=== PATIENT | female | born 1995 | race African-American/Black ===

== ENCOUNTER 2017-05-05 19:54 | Emergency (ER) | payer MEDICAID, OTHER ==
[~2017-05-05] VITALS: Ht 177.8 cm; Wt 146.0 kg
[2017-05-05 23:45] VITALS: BP 140/71
== END 2017-05-06 00:13 | disposition home or self-care (01) ==
LOC: ER 19:54
DX: T18.198A Other foreign object in esophagus causing other injury, initial encounter (principal); J45.909 Unspecified asthma, uncomplicated; F84.0 Autistic disorder; E11.9 Type 2 diabetes mellitus without complications; D64.9 Anemia, unspecified; Y92.89 Other specified places as the place of occurrence of the external cause
CPT/HCPCS: 99283; Z7610

== ENCOUNTER 2018-11-24 08:37 | Emergency (ER) | payer OTHER ==
[~2018-11-24] VITALS: Ht 167.6 cm; Wt 100.0 kg
[2018-11-24 10:05] LABS: BASOPHILS % 0.2 % (0.0-2.0); EOSINOPHILS % 1.1 % (0.0-5.0); HEMATOCRIT. 34.8 % (36.0-48.0); HEMOGLOBIN. 11.5 g/dL (12.0-16.0); LYMPHOCYTES % 33.4 % (20.0-50.0); MEAN CORPUSCULAR HEMOGLOBIN 31.2 pg (28.0-32.0); MEAN PLATELET VOLUME 9.6 fl (7.4-10.4); MONOCYTES % 11.3 % (2.0-8.0); PLATELET 184 x1000/uL (130-400); RED CELL DISTRIBUTION WIDTH 14.2 % (11.6-14.6)
[2018-11-24 10:12] LABS: CHLORIDE 108 mEq/L (98-107)
[2018-11-24 10:16] LABS: ETHANOL BLOOD < 10 mg/dL
[2018-11-24 10:23] LABS: HCG SCREEN NEGATIVE
[2018-11-24 14:01] LABS: CLARITY URINE CLOUDY (CLEAR); COLOR URINE YELLOW (YELLOW); KETONES URINE TRACE (NEGATIVE); LEUKOCYTE ESTERASE URINE NEGATIVE (NEGATIVE); NITRITE URINE NEGATIVE (NEGATIVE); OCCULT BLOOD URINE NEGATIVE (NEGATIVE); PROTEIN URINE NEGATIVE (NEGATIVE); SPECIFIC GRAVITY URINE 1.021 (1.005-1.030); UROBILINOGEN URINE 0.2 E.U./dL (0.2-1.0)
[2018-11-24 14:16] LABS: *AMPHETAMINES SCREEN URINE NEGATIVE (NEGATIVE); *BARBITURATES SCREEN URINE NEGATIVE (NEGATIVE); *BENZODIAZEPINES SCREEN URINE NEGATIVE (NEGATIVE)
[2018-11-24 14:18] LABS: *COCAINE SCREEN URINE NEGATIVE (NEGATIVE); CANNABINOID URINE SCREEN NEGATIVE (NEGATIVE); METHADONE URINE SCREEN NEGATIVE (NEGATIVE); OPIATES URINE SCREEN NEGATIVE (NEGATIVE); PHENCYCLIDINE URINE SCREEN NEGATIVE (NEGATIVE)
[2018-11-24 14:21] VITALS: BP 150/75
== END 2018-11-24 14:44 | disposition home or self-care (01) ==
LOC: ER 08:37
DX: F23 Brief psychotic disorder (principal); J45.909 Unspecified asthma, uncomplicated; E11.9 Type 2 diabetes mellitus without complications; D64.9 Anemia, unspecified
CPT/HCPCS: 36415; 80305; 80307; 80320; 80329; 81003; 81025; 82962; 84703; 99283; G0480

== ENCOUNTER 2019-02-25 17:39 | Emergency (ER) | payer OTHER ==
[~2019-02-25] VITALS: Ht 170.2 cm; Wt 114.0 kg
[2019-02-25] MEDS ORDERED: CHLO200T9 PO (17:52)
[2019-02-25] MEDS ORDERED: DOCU250C69 PO (17:52)
[2019-02-25] MEDS ORDERED: BISA-81 PO (17:52)
[2019-02-25] MEDS ORDERED: DORZ10DR9 OP (17:52)
[2019-02-25] MEDS ORDERED: DIVA-75 PO (17:52)
[2019-02-25] MEDS ORDERED: ALBU18HF2 IH (17:52)
[2019-02-25] MEDS ORDERED: FLUO20CA33 PO (17:52)
[2019-02-25] MEDS ORDERED: HALO100A IM (17:55)
[2019-02-25] MEDS ORDERED: FLUT15.844 NS (17:55)
[2019-02-25] MEDS ORDERED: HYDR-4001 PO (17:55)
[2019-02-25] MEDS ORDERED: LURA80TA PO (17:55)
[2019-02-25] MEDS ORDERED: METF-815 PO (17:55)
[2019-02-25] MEDS ORDERED: OLAN15TA17 PO (17:55)
[2019-02-25] MEDS ORDERED: SENN-170 PO (17:56)
[2019-02-25] MEDS ORDERED: SODIUM CHLORIDE 0.9% 1,000 ML IV ONE (18:39)
[2019-02-25] MEDS ORDERED: ONDANSETRON HCL 4MG/2ML INJ IV STA (18:39)
[2019-02-25 19:12] LABS: CHLORIDE 107 mEq/L (98-107)
[2019-02-25 19:16] LABS: ETHANOL BLOOD < 10 mg/dL
[2019-02-25 19:20] LABS: BASOPHILS % 0.4 % (0.0-2.0); EOSINOPHILS % 1.6 % (0.0-5.0); HEMATOCRIT. 39.2 % (36.0-48.0); HEMOGLOBIN. 12.8 g/dL (12.0-16.0); LYMPHOCYTES % 30.3 % (20.0-50.0); MEAN CORPUSCULAR HEMOGLOBIN 30.3 pg (28.0-32.0); MEAN CORPUSCULAR VOLUME 92.7 fL (81.0-99.0); MEAN PLATELET VOLUME 9.8 fl (7.4-10.4); MONOCYTES % 9.7 % (2.0-8.0); PLATELET 194 x1000/uL (130-400); RED BLOOD CELL COUNT 4.23 mill/uL (4.2-5.4); RED CELL DISTRIBUTION WIDTH 14.2 % (11.6-14.6)
[2019-02-26 11:20] LABS: *AMPHETAMINES SCREEN URINE NEGATIVE (NEGATIVE); *BARBITURATES SCREEN URINE NEGATIVE (NEGATIVE); *BENZODIAZEPINES SCREEN URINE NEGATIVE (NEGATIVE); *COCAINE SCREEN URINE NEGATIVE (NEGATIVE); METHADONE URINE SCREEN NEGATIVE (NEGATIVE); OPIATES URINE SCREEN NEGATIVE (NEGATIVE)
[2019-02-26 11:21] LABS: CANNABINOID URINE SCREEN NEGATIVE (NEGATIVE); PHENCYCLIDINE URINE SCREEN NEGATIVE (NEGATIVE)
[2019-02-26 15:48] LABS: CLARITY URINE CLEAR (CLEAR); COLOR URINE YELLOW (YELLOW); KETONES URINE TRACE (NEGATIVE); LEUKOCYTE ESTERASE URINE NEGATIVE (NEGATIVE); NITRITE URINE NEGATIVE (NEGATIVE); OCCULT BLOOD URINE NEGATIVE (NEGATIVE); PH URINE 6.5 (4.5-8.0); PROTEIN URINE NEGATIVE (NEGATIVE); SPECIFIC GRAVITY URINE 1.023 (1.005-1.030); UROBILINOGEN URINE 0.2 E.U./dL (0.2-1.0)
[2019-02-26] MEDS ORDERED: LORAZEPAM 2MG/ML CPJ IM ONE (16:45)
[2019-02-26] MEDS ORDERED: HALOPERIDOL LACTATE 5MG/ML VIAL IM ONE (16:45)
[2019-02-26] MEDS ORDERED: DIPHENHYDRAMINE 50MG/ML VIAL IM ONE (16:45)
[2019-02-26] MEDS ORDERED: DIVALPROEX SODIUM 250MG ER TABLET PO SCH (17:00)
[2019-02-26] MEDS ORDERED: DIVALPROEX SODIUM 500MG DR TABLET PO SCH (17:00)
[2019-02-26] MEDS: FLUOXETINE HCL 20MG CAPSULE PO SCH (17:11)
[2019-02-26] MEDS: DIVALPROEX SODIUM 250MG DR TABLET PO SCH (17:45)
[2019-02-26 21:46] LABS: HCG SCREEN NEGATIVE
[2019-02-26] MEDS: CHLORPROMAZINE HCL 25 MG TABLET PO SCH (22:38)
[2019-02-27] MEDS: CHLORPROMAZINE HCL 25 MG TABLET PO SCH ×2 (10:47→14:00)
[2019-02-27] MEDS: DIVALPROEX SODIUM 250MG DR TABLET PO SCH ×2 (10:47→17:00)
[2019-02-27] MEDS: FLUOXETINE HCL 20MG CAPSULE PO SCH (10:47)
[2019-02-28] MEDS: FLUOXETINE HCL 20MG CAPSULE PO SCH (09:00)
[2019-02-28] MEDS: DIVALPROEX SODIUM 250MG DR TABLET PO SCH (09:00)
[2019-02-28 16:51] VITALS: BP 106/65
== END 2019-02-28 17:20 | disposition home or self-care (01) ==
LOC: ER 17:39
DX: R53.1 Weakness (principal); E86.0 Dehydration; G93.49 Other encephalopathy; E11.9 Type 2 diabetes mellitus without complications; J45.909 Unspecified asthma, uncomplicated; Z75.1 Person awaiting admission to adequate facility elsewhere; F41.9 Anxiety disorder, unspecified; F20.9 Schizophrenia, unspecified; Z79.84 Long term (current) use of oral hypoglycemic drugs; Z79.899 Other long term (current) drug therapy; Z91.14 Patient's other noncompliance with medication regimen
CPT/HCPCS: 36415; 80053; 80320; 81025; 82962; 85025; 93005; 96361; 96372; 96374; 99284; J1200; J1630; J2060; J2405; J7030; Q0161; G0480

== ENCOUNTER 2019-11-23 22:18 | Emergency (ER) | payer OTHER ==
[~2019-11-23] VITALS: Ht 177.8 cm; Wt 146.0 kg
[~2019-11-23 22:18] MED LIST: ALBU18HF2 IH; BISA-81 PO; CHLO200T9 PO; DIVA-75 PO; DOCU250C69 PO; DORZ10DR9 OP; FLUO20CA33 PO; FLUT15.844 NS; HALO100A IM; HYDR-4001 PO; LURA80TA PO; METF-815 PO; OLAN15TA17 PO; SENN-170 PO
[2019-11-24 03:15] LABS: BASOPHILS % 0.4 % (0.0-2.0); EOSINOPHILS % 0.5 % (0.0-5.0); HEMATOCRIT. 34.7 % (36.0-48.0); HEMOGLOBIN. 11.5 g/dL (12.0-16.0); LYMPHOCYTES % 30.9 % (20.0-50.0); MEAN CORPUSCULAR HEMOGLOBIN 30.9 pg (28.0-32.0); MEAN CORPUSCULAR VOLUME 93.1 fL (81.0-99.0); MEAN PLATELET VOLUME 9.8 fl (7.4-10.4); MONOCYTES % 8.4 % (2.0-8.0); NEUTROPHILS % 59.8 % (40.0-76.0); PLATELET 187 x1000/uL (130-400); RED BLOOD CELL COUNT 3.73 mill/uL (4.2-5.4); RED CELL DISTRIBUTION WIDTH 14.1 % (11.6-14.6)
[2019-11-24 03:17] LABS: CLARITY URINE CLOUDY (CLEAR); COLOR URINE DARK YELLOW (YELLOW); KETONES URINE 1+ (NEGATIVE); LEUKOCYTE ESTERASE URINE TRACE (NEGATIVE); NITRITE URINE NEGATIVE (NEGATIVE); OCCULT BLOOD URINE NEGATIVE (NEGATIVE); PROTEIN URINE 1+ (NEGATIVE); SPECIFIC GRAVITY URINE 1.034 (1.005-1.030)
[2019-11-24 03:22] LABS: CHLORIDE 108 mEq/L (98-107)
[2019-11-24] MEDS ORDERED: ACETAMINOPHEN 325MG TABLET PO ONE (04:15)
[2019-11-24 05:51] VITALS: BP 143/79
== END 2019-11-24 05:58 | disposition home or self-care (01) ==
LOC: ER 22:18
DX: R10.13 Epigastric pain (principal); N39.0 Urinary tract infection, site not specified; D64.9 Anemia, unspecified; F41.9 Anxiety disorder, unspecified; J45.909 Unspecified asthma, uncomplicated; F32.9 Major depressive disorder, single episode, unspecified; F20.9 Schizophrenia, unspecified; Z98.890 Other specified postprocedural states
CPT/HCPCS: 36415; 80053; 81003; 81025; 85025; 93005; 99284

== ENCOUNTER 2022-03-20 15:23 | Emergency (ER) | payer MEDICAID, OTHER ==
[~2022-03-20] VITALS: Ht 167.6 cm; Wt 100.0 kg
[~2022-03-20 15:23] MED LIST changes: +CHLO200T20 PO; -CHLO200T9 PO; -LURA80TA PO; +LURA80TA2 PO; -METF-815 PO; +METF-873 PO; -OLAN15TA17 PO; +OLAN15TA35 PO; -SENN-170 PO; +SENN-257 PO
[2022-03-20] MEDS ORDERED: ONDANSETRON HCL 4MG/2ML INJ IV ONE (17:00)
[2022-03-20] MEDS ORDERED: SODIUM CHLORIDE 0.9% 1,000 ML IV ONE (17:00)
[2022-03-20] MEDS ORDERED: VISCOUS LIDOCAINE 2% 15 ML UDC PO STA (17:03)
[2022-03-20] MEDS ORDERED: MAGNESIUM/ALUMINUM HYDROXIDE/SIMETHICONE 30ML UDC PO STA (17:03)
[2022-03-20 17:30] LABS: BASOPHILS % 0.2 % (0.0-2.0); EOSINOPHILS % 0.4 % (0.0-5.0); HEMATOCRIT. 40.5 % (36.0-48.0); HEMOGLOBIN. 13.5 g/dL (12.0-16.0); LYMPHOCYTES % 36.5 % (20.0-50.0); MEAN CORPUSCULAR HEMOGLOBIN 28.3 pg (28.0-32.0); MEAN CORPUSCULAR VOLUME 84.9 fL (81.0-99.0); MEAN PLATELET VOLUME 10.6 fl (7.4-10.4); NEUTROPHILS % 53.9 % (40.0-76.0); PLATELET 192 x1000/uL (130-400); RED BLOOD CELL COUNT 4.77 mill/uL (4.2-5.4)
[2022-03-20 17:36] LABS: CHLORIDE 105 mEq/L (98-107)
[2022-03-20 18:02] LABS: B-HCG QUANTITATIVE 39593 mIU/mL (<3)
[2022-03-20] MEDS ORDERED: POTASSIUM CHLORIDE 20MEQ TABLET SR PO ONE (18:45)
[2022-03-20] MEDS ORDERED: POTASSIUM CHLORIDE 20MEQ TABLET SR PO NR (19:00)
[2022-03-20] MEDS ORDERED: ONDANSETRON HCL 4MG/2ML INJ IV NR (19:00)
[2022-03-20] MEDS ORDERED: MAGNESIUM/ALUMINUM HYDROXIDE/SIMETHICONE 30ML UDC PO NR (19:00)
[2022-03-20] MEDS ORDERED: VISCOUS LIDOCAINE 2% 15 ML UDC PO NR (19:15)
[2022-03-20] MEDS ORDERED: ONDA4TAB11 PO (21:03)
[2022-03-20] MEDS ORDERED: PREN-135 MT (21:03)
[2022-03-20 21:30] VITALS: BP 117/82
== END 2022-03-20 21:33 | disposition home or self-care (01) ==
LOC: ER 15:23
DX: O26.891 Other specified pregnancy related conditions, first trimester (principal); O21.0 Mild hyperemesis gravidarum; Z3A.08 8 weeks gestation of pregnancy; D64.9 Anemia, unspecified; F41.9 Anxiety disorder, unspecified; J45.909 Unspecified asthma, uncomplicated; F32.9 Major depressive disorder, single episode, unspecified; F84.0 Autistic disorder; E11.9 Type 2 diabetes mellitus without complications; F20.9 Schizophrenia, unspecified; Z98.890 Other specified postprocedural states
CPT/HCPCS: 36415; 76705; 76801; 80053; 82010; 84702; 85025; 86850; 86900; 86901; 96374; 99285; J2405; J7030; Z7610

== ENCOUNTER 2023-05-24 21:59 | Emergency (ER) | payer MEDICAID ==
[~2023-05-24] VITALS: Ht 172.7 cm; Wt 109.0 kg
[~2023-05-24 21:59] MED LIST changes: +ONDA4TAB11 PO; +PREN-135 MT
[2023-05-24 22:16] VITALS: BP 140/73; PULSE 80; RESP 18; TEMP 98.7; O2SAT 97
[2023-05-24] MEDS ORDERED: HYDROCODONE/ACETAMINOPHEN 5/325MG TABLET PO STA (22:24)
[2023-05-24 23:08] LABS: BASOPHILS % 0.5 % (0.0-2.0); EOSINOPHILS % 1.5 % (0.0-5.0); HEMATOCRIT. 35.4 % (36.0-48.0); HEMOGLOBIN. 11.8 g/dL (12.0-16.0); MEAN CORPUSCULAR HEMOGLOBIN 30.8 pg (28.0-32.0); MEAN CORPUSCULAR HGB CONC 33.3 g/dL (31.0-37.0); MEAN CORPUSCULAR VOLUME 92.4 fL (81.0-99.0); MEAN PLATELET VOLUME 9.2 fl (7.4-10.4); MONOCYTES % 7.4 % (2.0-8.0); NEUTROPHILS % 39.6 % (40.0-76.0); PLATELET 205 x1000/uL (130-400); RED BLOOD CELL COUNT 3.84 mill/uL (4.2-5.4); RED CELL DISTRIBUTION WIDTH 12.7 % (11.6-14.6); WHITE BLOOD COUNT 6.8 x1000/uL (4.5-11.0)
[2023-05-24 23:17] LABS: PROTHROMBIN TIME 11.3 sec (9.6-11.0)
[2023-05-24 23:25] LABS: ALANINE AMINOTRANSFERASE 13 IU/L (10-49); ALBUMIN 3.9 g/dL (3.2-4.8); ASPARTATE AMINOTRANSFERASE 21 IU/L (<34); BILIRUBIN TOTAL 0.2 mg/dL (0.1-1.0); CALCIUM 8.6 mg/dL (8.7-10.4); CARBON DIOXIDE 22 mEq/L (21-32); CHLORIDE 108 mEq/L (98-107); CREATININE 0.5 mg/dL (0.6-1.0); GLUCOSE 96 mg/dL (70-105); POTASSIUM 3.7 mEq/L (3.5-5.1); PROTEIN TOTAL 7.2 g/dL (6.0-8.3); SODIUM 138 mEq/L (136-145)
[2023-05-24 23:48] LABS: HCG SCREEN NEGATIVE
[2023-05-25 01:21] LABS: UREA NITROGEN BLOOD < 5 mg/dL (9-23)
[2023-05-25 01:22] LABS: TROPONIN I HIGH SENSITIVITY < 4 ng/L (3.0-34)
[2023-05-25 01:23] LABS: TROPONIN I HIGH SENSITIVITY < 4 ng/L (3.0-34)
[2023-05-25] MEDS: HYDROCODONE/ACETAMINOPHEN 5/325MG TABLET PO NR (01:51)
== END 2023-05-25 04:11 | disposition home or self-care (01) ==
LOC: ER 21:59
DX: R55 Syncope and collapse (principal); R51.9 Headache, unspecified; D64.9 Anemia, unspecified; F41.9 Anxiety disorder, unspecified; J45.909 Unspecified asthma, uncomplicated; F31.9 Bipolar disorder, unspecified; E11.9 Type 2 diabetes mellitus without complications; F20.9 Schizophrenia, unspecified; Z79.899 Other long term (current) drug therapy
CPT/HCPCS: 36415; 80053; 83880; 84484; 84703; 85025; 93005; 99284

== ENCOUNTER 2023-05-25 22:48 | Emergency (ER) | payer MEDICAID ==
[~2023-05-25] VITALS: Ht 170.2 cm; Wt 98.0 kg
[2023-05-25 22:52] VITALS: O2SAT 100
[2023-05-26 00:45] VITALS: BP 130/73; PULSE 85; RESP 18; TEMP 98
== END 2023-05-26 00:50 | disposition home or self-care (01) ==
LOC: ER 22:48
DX: F81.9 Developmental disorder of scholastic skills, unspecified (principal); J45.909 Unspecified asthma, uncomplicated; F31.9 Bipolar disorder, unspecified; E11.9 Type 2 diabetes mellitus without complications; I10 Essential (primary) hypertension; F20.9 Schizophrenia, unspecified; Z79.899 Other long term (current) drug therapy
CPT/HCPCS: 71045; 74018; 99284

== ENCOUNTER 2023-05-28 23:51 | Emergency (ER) | payer MEDICAID ==
[~2023-05-28] VITALS: Ht 177.8 cm; Wt 130.0 kg
[2023-05-28 23:55] VITALS: O2SAT 100
[2023-05-29 00:31] LABS: BASOPHILS % 0.3 % (0.0-2.0); EOSINOPHILS % 1.3 % (0.0-5.0); HEMATOCRIT. 35.3 % (36.0-48.0); HEMOGLOBIN. 11.8 g/dL (12.0-16.0); LYMPHOCYTES % 57.7 % (20.0-50.0); MEAN CORPUSCULAR HEMOGLOBIN 30.8 pg (28.0-32.0); MEAN CORPUSCULAR HGB CONC 33.4 g/dL (31.0-37.0); MEAN CORPUSCULAR VOLUME 92.2 fL (81.0-99.0); MEAN PLATELET VOLUME 9.4 fl (7.4-10.4); MONOCYTES % 8.1 % (2.0-8.0); NEUTROPHILS % 32.6 % (40.0-76.0); PLATELET 252 x1000/uL (130-400); RED BLOOD CELL COUNT 3.83 mill/uL (4.2-5.4); RED CELL DISTRIBUTION WIDTH 13.5 % (11.6-14.6); WHITE BLOOD COUNT 6.7 x1000/uL (4.5-11.0)
[2023-05-29 00:39] LABS: PROTHROMBIN TIME 11.1 sec (9.6-11.0)
[2023-05-29 00:58] LABS: ALANINE AMINOTRANSFERASE 8 IU/L (10-49); ALBUMIN 4.2 g/dL (3.2-4.8); ASPARTATE AMINOTRANSFERASE 13 IU/L (<34); BILIRUBIN TOTAL 0.3 mg/dL (0.1-1.0); CALCIUM 8.9 mg/dL (8.7-10.4); CARBON DIOXIDE 23 mEq/L (21-32); CHLORIDE 110 mEq/L (98-107); CREATININE 0.6 mg/dL (0.6-1.0); GLUCOSE 112 mg/dL (70-105); POTASSIUM 3.6 mEq/L (3.5-5.1); PROTEIN TOTAL 8.3 g/dL (6.0-8.3); SODIUM 141 mEq/L (136-145); UREA NITROGEN BLOOD 5 mg/dL (9-23)
[2023-05-29 01:25] LABS: HCG SCREEN NEGATIVE
[2023-05-29] MEDS: SODIUM CHLORIDE 0.9% 1,000 ML IV ONE (01:44)
[2023-05-29] MEDS: ONDANSETRON HCL 4MG/2ML INJ IV ONE (01:44)
[2023-05-29] MEDS: FAMOTIDINE 20MG/2ML VIAL IV SCH (01:44)
[2023-05-29] MEDS: MAGNESIUM/ALUMINUM HYDROXIDE/SIMETHICONE 30ML UDC PO NR (01:44)
[2023-05-29] MEDS ORDERED: ONDA4TAB50 MT (04:24)
[2023-05-29] MEDS ORDERED: MAG355OR21 MT (04:24)
[2023-05-29] MEDS ORDERED: ACET-2708 MT (04:24)
[2023-05-29 05:30] VITALS: BP 127/74; PULSE 85; RESP 17; TEMP 98.5
== END 2023-05-29 05:46 | disposition home or self-care (01) ==
LOC: ER 23:51
DX: R10.9 Unspecified abdominal pain (principal); R11.2 Nausea with vomiting, unspecified; F41.9 Anxiety disorder, unspecified; E11.9 Type 2 diabetes mellitus without complications
CPT/HCPCS: 99285; 80053; 84703; 83690; 85025; 85610; 36415; 74176; 93005; 96361; 96374; 96375; J3490; J2405; J7030; Z7610 ×3

== ENCOUNTER 2023-06-01 20:20 | Emergency (ER) | payer MEDICAID ==
[~2023-06-01] VITALS: Ht 177.8 cm; Wt 130.0 kg
[~2023-06-01 20:20] MED LIST changes: +ACET-2708 MT; +MAG355OR21 MT; +ONDA4TAB50 MT
[2023-06-01 20:21] VITALS: O2SAT 100
[2023-06-02 00:33] LABS: CLARITY URINE CLOUDY (CLEAR); COLOR URINE YELLOW (YELLOW); GLUCOSE URINE NEGATIVE (NEGATIVE); KETONES URINE TRACE (NEGATIVE); LEUKOCYTE ESTERASE URINE 2+ (NEGATIVE); NITRITE URINE NEGATIVE (NEGATIVE); OCCULT BLOOD URINE NEGATIVE (NEGATIVE); PROTEIN URINE NEGATIVE (NEGATIVE); SPECIFIC GRAVITY URINE 1.022 (1.005-1.030)
[2023-06-02] MEDS: IBUPROFEN 600MG TABLET PO ONE (01:01)
[2023-06-02 01:35] LABS: SQUAMOUS EPITHELIAL CELL URINE 1+ /lpf (RARE/1+)
[2023-06-02 01:36] LABS: RBC URINE 0-2 /hpf (0-2)
[2023-06-02 01:37] LABS: BACTERIA URINE 1+
[2023-06-02] MEDS ORDERED: IBUP-2029 MT (01:54)
[2023-06-02] MEDS ORDERED: CEPH500C2 MT (01:54)
[2023-06-02 02:20] VITALS: BP 126/76; PULSE 68; RESP 18; TEMP 98.4
== END 2023-06-02 02:00 | disposition home or self-care (01) ==
LOC: ER 20:20
DX: N39.0 Urinary tract infection, site not specified (principal); M54.50 Low back pain, unspecified; F41.9 Anxiety disorder, unspecified; E11.9 Type 2 diabetes mellitus without complications; Z79.899 Other long term (current) drug therapy
CPT/HCPCS: 81003; 81025; 99283